=== PATIENT | male | born 1985 | race African-American/Black ===

== ENCOUNTER 2019-07-30 11:56 | Emergency (ER) | payer BC ==
[~2019-07-30] VITALS: Ht 182.9 cm; Wt 93.9 kg
[2019-07-30 12:02] VITALS: BP 121/70; Ht 182.9 cm; Wt 93.9 kg
== END 2019-07-30 13:20 | disposition home or self-care (01) ==
LOC: ED 11:56
DX: S41.111A Laceration without foreign body of right upper arm, initial encounter (principal); W25.XXXA Contact with sharp glass, initial encounter; Y93.89 Activity, other specified; Y92.89 Other specified places as the place of occurrence of the external cause; Y99.8 Other external cause status
CPT/HCPCS: J2001

== ENCOUNTER 2019-08-15 16:27 | Emergency (ER) | payer BC ==
[~2019-08-15] VITALS: Ht 182.9 cm; Wt 92.1 kg
[2019-08-15 16:48] VITALS: BP 122/73; Ht 182.9 cm; Wt 92.1 kg
== END 2019-08-15 17:51 | disposition home or self-care (01) ==
LOC: ED 16:27
DX: S51.811D Laceration without foreign body of right forearm, subsequent encounter (principal); X58.XXXD Exposure to other specified factors, subsequent encounter